=== PATIENT | male | born 1985 | race Caucasian/White ===

== ENCOUNTER 2018-11-13 18:12 | Emergency (ER) | payer OTHER ==
[~2018-11-13] VITALS: Ht 180.3 cm; Wt 136.1 kg
[~2018-11-13 18:12] MED LIST: ACET325; AMOX500 PO; CEPH500 PO; DIPH50; HYDACE5 PO; IBUP600 PO; IBUP800 PO
[2018-11-13] MEDS ORDERED: LEVSOD50 PO (18:25)
[2018-11-13] MEDS ORDERED: VITAMIN D50000 UNIT PO (18:26)
[2018-11-13] MEDS ORDERED: TOCO1000 PO (18:26)
[2018-11-13] MEDS ORDERED: Fish Oil Conc1000 MG PO (18:28)
[2018-11-13] MEDS ORDERED: Cyclobenzaprine5 MG PO (19:33)
== END 2018-11-13 19:38 | disposition home or self-care (01) ==
LOC: ER 18:12
DX: M54.5 Low back pain (principal); M54.6 Pain in thoracic spine; Z88.8 Allergy status to other drugs, medicaments and biological substances; Z79.899 Other long term (current) drug therapy; V49.9XXA Car occupant (driver) (passenger) injured in unspecified traffic accident, initial encounter
CPT/HCPCS: 72070; 72100; 99283-25

== ENCOUNTER 2021-01-06 10:16 | Observation (INO) | payer OTHER ==
[~2021-01-06] VITALS: Ht 180.3 cm; Wt 135.2 kg
[~2021-01-06 10:16] MED LIST changes: +Cyclobenzaprine5 MG PO; +Fish Oil Conc1000 MG PO; +LEVSOD50 PO; +TOCO1000 PO; +VITAMIN D50000 UNIT PO
[2021-01-06 11:02] LABS: BASOPHILS ABSOLUTE AUTO 0.05 K/mm3 (0.00-0.23); BASOPHILS PERCENT AUTO 1 % (0-2); EOSINOPHILS ABSOLUTE AUTO 0.07 K/mm3 (0.00-0.68); EOSINOPHILS PERCENT AUTO 1 % (0-6); Hematocrit 50.2 % (37.0-53.0); Hemoglobin 16.8 g/dL (13.5-17.5); IMMATURE GRAN ABSOLUTE AUTO 0.02 K/mm3 (0.00-0.10); IMMATURE GRAN PERCENT AUTO 0 % (0-1); LYMPHOCYTES ABSOLUTE AUTO 0.76 K/mm3 (0.84-5.20); LYMPHOCYTES PERCENT AUTO 9 % (21-46); MONOCYTES ABSOLUTE AUTO 0.05 K/mm3 (0.16-1.47); MONOCYTES PERCENT AUTO 1 % (4-13); Mean Corpuscular HGB 29.4 pg (26.0-34.0); Mean Corpuscular HGB Conc 33.5 g/dL (31.5-36.5); Mean Corpuscular Volume 88 fL (80-100); Mean Platelet Volume 9.8 fL (9.1-12.4); NEUTROPHILS ABSOLUTE AUTO 7.45 K/mm3 (1.96-9.15); NEUTROPHILS PERCENT AUTO 89 % (41-73); Platelet Count 231 K/mm3 (150-400); RDW Coefficient Variation 12.4 % (11.7-14.2); Red Blood Cell Count 5.72 M/mm3 (4.30-5.90)
[2021-01-06 11:09] LABS: Source, Urine Clean Catch
[2021-01-06 11:18] LABS: Bilirubin, Urine Neg (Neg); Blood, Urine Neg (Neg); Glucose Qualitative, Urine Neg (Neg); Ketones, Urine Neg (Neg); Leukocyte Esterase, Urine Neg (Neg); Nitrite, Urine Neg (Neg); Protein, Urine Neg (Neg); Specific Gravity, Urine 1.005 (1.003-1.022); Urobilinogen, Urine NORM (Normal)
[2021-01-06 11:20] LABS: Alanine Aminotransfer (ALT/SGP 89 U/L (12-78); Albumin, Blood 4.4 g/dL (3.4-5.0); Alk Phos 95 U/L (50-136); Anion Gap 5 mmol/L (6-16); Aspartate Aminotrans (AST/SGOT 62 U/L (12-37); Bilirubin, Total 1.4 mg/dL (0.1-1.0); Blood Urea Nitrogen 15 mg/dL (8-24); Bun/Creatinine Ratio 12.8 (12.0-20.0); CO2, Blood 28 mmol/L (21-32); Calcium, Blood 8.9 mg/dL (8.5-10.1); Chloride, Blood 102 mmol/L (98-108); Creatinine, Blood 1.17 mg/dL (0.60-1.20); Globulin, Blood 4.2 g/dL (2.2-4.0); Glomerular Filtration Rate >60 (60-); Glucose, Blood 101 mg/dL (70-99); Potassium, Blood 3.9 mmol/L (3.5-5.5); Sodium, Blood 135 mmol/L (136-145); Total Protein, Blood 8.6 g/dL (6.4-8.2)
[2021-01-06 11:21] LABS: Appearance, Urine Clear (Clear); Color, Urine Yellow (P-Yellow)
[2021-01-06 12:48] LABS: SARS-Cov-2 (COVID-19) PCR, MMC NEGATIVE (NEGATIVE)
--- NOTE | 2021-01-06 15:50 | NUR ---
01/06/21 1550 Jessenia Polanco PT ON SCHEDULED ANTIBIOTICS
[2021-01-06] MEDS ORDERED: AMLO10 PO (16:37)
--- NOTE | 2021-01-06 19:19 | NUR ---
RECEIVED REPORT AND ASSUMED CARE OF PT. HE IS LYING IN BED WATCHING TV, DENIES PAIN, REPORTS NO DIFFICULTY URINATING. HAS BELCHED, BUT HAS NOT PASSED GAS YET. NIKOLAI N/V. JAI.
--- NOTE | 2021-01-07 05:12 | NUR ---
SHIFT SUMMARY: MACK IS A&OX4. VSS, NO ACUTE EVENTS OVERNIGHT. HE IS TOLERATING PO INTAKE WELL, DENIES PAIN AND IS VOIDING WITHOUT DIFFICULTY. HE IS INDEPENDENT IN THE ROOM. IV TO L AC PATENT. STERI STRIPS TO ABDOMEN X 3 C/D&I. HE IS LYING IN BED WITH HIS EYES CLOSED AND CALL LIGHT IN REACH. WILL REPORT TO DAY SHIFT RN.
[2021-01-07] MEDS ORDERED: HYDR1TAB94 PO (11:52)
[2021-01-07] MEDS ORDERED: AMOCLA875 PO (11:53)
--- NOTE | 2021-01-07 12:07 | NUR ---
DR ANAYA IN TO SEE PT.
--- NOTE | 2021-01-07 12:09 | NUR ---
WENT OVER DISHCARGE INFORMATION, PT VERBALIZED UNDERSTANDING. IV DC'D, WNL, CATHETER INTACT. PT FINISHING EATING LUNCH.
--- NOTE | 2021-01-07 12:52 | NUR ---
PT LEFT UNIT IN WC W/POSSESSIONS AND DC PAPERWORK IN HAND.
== END 2021-01-07 12:23 | disposition home or self-care (01) ==
LOC: ER 10:16 → SURS 10:17 → ER 14:14 → SURS 14:14
PROVIDERS: Emergency Medicine; Physician Assistant; ADMIT Surgery
PROC: 0DTJ4ZZ Resection of Appendix, Percutaneous Endoscopic Approach (ICD-10-PCS; principal; 2021-01-06 14:30)
DX: K35.31 Acute appendicitis with localized peritonitis and gangrene, without perforation (principal); I10 Essential (primary) hypertension; E03.9 Hypothyroidism, unspecified; K21.9 Gastro-esophageal reflux disease without esophagitis; E66.01 Morbid (severe) obesity due to excess calories; Z68.41 Body mass index [BMI] 40.0-44.9, adult; Z20.822 Contact with and (suspected) exposure to COVID-19; Z88.5 Allergy status to narcotic agent; Z88.8 Allergy status to other drugs, medicaments and biological substances
CPT/HCPCS: 36415; 74177; 80053; 81003; 83690; 85025; 88304; 93005; 93010; 96365-59; 96375; 96376; 99285-25; A9270; G0378; J1100; J1885; J2250; J2405; J2543; J2704; J3010; J7030; J7120; Q9967; U0004

== ENCOUNTER 2024-10-16 09:18 | Emergency (ER) | payer OTHER ==
[~2024-10-16 09:18] MED LIST changes: +AMLO10 PO; +AMOCLA875 PO; +ASPI81CH; +HYDR1TAB94 PO; +LOMAIRA8 MG PO; +LOSARTAN POTASS25 M2; +Norvasc5 MG PO
[2024-10-16] MEDS ORDERED: Carbamide Peroxide Otic Soln BOTHEARS ONE (10:05)
== END 2024-10-16 11:00 | disposition home or self-care (01) ==
LOC: ER 09:18
DX: H61.22 Impacted cerumen, left ear (principal)
CPT/HCPCS: 99282; A9270

== ENCOUNTER → 2024-11-10 | Outpatient (CLI) | payer OTHER ==
[2024-11-10 08:26] LABS: BASOPHILS ABSOLUTE AUTO 0.12 K/mm3 (0.00-0.23); BASOPHILS PERCENT AUTO 1 % (0-2); EOSINOPHILS ABSOLUTE AUTO 0.13 K/mm3 (0.00-0.68); EOSINOPHILS PERCENT AUTO 1 % (0-6); Hematocrit 43.9 % (37.0-53.0); IMMATURE GRAN ABSOLUTE AUTO 0.09 K/mm3 (0.00-0.10); IMMATURE GRAN PERCENT AUTO 1 % (0-1); LYMPHOCYTES ABSOLUTE AUTO 2.48 K/mm3 (0.84-5.20); LYMPHOCYTES PERCENT AUTO 25 % (21-46); MONOCYTES ABSOLUTE AUTO 0.97 K/mm3 (0.16-1.47); MONOCYTES PERCENT AUTO 10 % (4-13); Mean Corpuscular HGB 30.2 pg (26.0-34.0); Mean Corpuscular HGB Conc 34.2 g/dL (31.5-36.5); Mean Corpuscular Volume 88 fL (80-100); NEUTROPHILS ABSOLUTE AUTO 6.13 K/mm3 (1.96-9.15); NEUTROPHILS PERCENT AUTO 62 % (41-73); Platelet Count 229 K/mm3 (150-400); RDW Standard Deviation 41.9 fL (35.1-46.3); Red Blood Cell Count 4.97 M/mm3 (4.30-5.90); White Blood Cell Count 9.92 K/mm3 (4.00-11.30)
[2024-11-10 08:53] LABS: Bilirubin, Total 0.6 mg/dL (0.1-1.0); Bun/Creatinine Ratio 16.7 (12.0-20.0); Calcium, Blood 8.7 mg/dL (8.5-10.1); Creatinine, Blood 1.2 mg/dL (0.60-1.20); Free Thyroxine 0.48 ng/dL (0.70-1.60); Globulin, Blood 3.9 g/dL (2.2-4.0); Magnesium, Blood 2.1 mg/dL (1.6-2.4); Potassium, Blood 3.7 mmol/L (3.5-5.5); Total Protein, Blood 7.9 g/dL (6.4-8.2)
== END ==
LOC: LAB SHORT 08:23 → LAB 08:23
PROVIDERS: Chiropractor
DX: E03.9 Hypothyroidism, unspecified (principal); R07.9 Chest pain, unspecified
CPT/HCPCS: 80053; 83735; 84439; 84443; 84484; 85025; 85379